=== PATIENT | male | born 1985 | race African-American/Black ===

== ENCOUNTER 2022-07-29 15:21 | Emergency (ER) | payer OTHER, BC, SELFPAY ==
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
[2022-07-29 15:23] VITALS: BP 152/94; PULSE 89; RESP 16; TEMP 36.8; O2SAT 100
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
[2022-07-29 16:38] VITALS: BP 148/80; PULSE 90; RESP 16; TEMP 36.8; O2SAT 100
== END 2022-07-29 16:41 | disposition home or self-care (01) ==
LOC: ANHED 16:29
PROVIDERS: Emergency Provider Nurse Practitioner Family; PCP Internal Medicine
DX: S29.012A Strain of muscle and tendon of back wall of thorax, initial encounter (principal); V49.50XA Passenger injured in collision with unspecified motor vehicles in traffic accident, initial encounter
CPT/HCPCS: 72040; 72072; 72100; 99284